=== PATIENT | female | born 1950 | race Caucasian/White ===

== ENCOUNTER 2017-11-25 11:21 | Inpatient (IN) | payer MEDICARE ==
--- NOTE | 2017-11-12 15:28 | HP ---
AMENDED REPORT NOW INCLUDES COSIGNER DESIGNATION - ESIGNED BEFORE ADJUSTMENT HISTORY AND PHYSICAL: DATE OF ADMISSION/SURGERY: 11/25/17 SURGEON: Sherly Godinez MD * (DICTATED BY AZEEM ALLEN) PROCEDURE: Right total hip arthroplasty. CHIEF COMPLAINT: Right hip pain. HISTORY OF PRESENT ILLNESS: Ms. Childress is a 67-year-old female with complaints of right hip pain secondary to advanced osteoarthritis. She has failed conservative management and elected to proceed with a right total hip arthroplasty, which is scheduled for 11/25/[address] Godinez. PAST MEDICAL HISTORY: 1. COPD. 2. High cholesterol. 3. Obesity. 4. Sleep apnea. PAST SURGICAL HISTORY: 1. Appendectomy. 2. Tonsillectomy. 3. Adenoidectomy. 4. Cholecystectomy. 5. Tubal ligation. 6. Left knee scope. 7. Left shoulder arthroscopy. 8. Cataract removal. CURRENT MEDICATIONS: 1. Vitamin D3. 2. Wellbutrin. 3. Vitamin B12. 4. Aspirin 81 mg daily. 5. Doxycycline 20 mg twice a day. 6. Simvastatin 20 mg daily. 7. Magnesium 500 mg twice daily. 8. Tramadol 50 mg every 6 hours as needed. 9. Uyvb-xnv-aohugxb Tylenol. ALLERGIES: 1. FLU VACCINE. 2. TETANUS. 3. SULFA. 4. MORPHINE. 5. CODEINE. 6. VALIUM. FAMILY HISTORY: Coronary artery disease. SOCIAL HISTORY: She is a 67-year-old female. She lives alone. She smokes a half pack a day. She denies use of drugs or alcohol. REVIEW OF SYSTEMS: A complete 14-point review of systems was reviewed with the patient and was positive for COPD and shortness of breath. She has had 1 seizure approximately 15 years ago. She denies history of DVT, PE, hepatitis C , or HIV. PHYSICAL EXAMINATION GENERAL: She is a well developed, well nourished, in no acute distress. VITAL SIGNS: She stands 5 feet 2 inches tall, weighs 248 pounds. Blood pressure 154/84, heart rate 90. HEENT: Normocephalic, atraumatic. NECK: Supple. No palpable lymph nodes. PULMONARY: She has some inspiratory wheezing in the right mid and lower lung base. CARDIAC: Regular rate and rhythm. Strong S1 and S2. ABDOMEN: Soft, nontender, and nondistended. MUSCULOSKELETAL: Right lower extremity, the skin is intact. There is no open wounds or abrasions. She walks with an antalgic gait favoring her right hip. She has decreased internal and external rotation of right hip. She has 2+ dorsalis pedis pulses. Intact sensation and her lower extremities muscle group strengths are intact at 5/5. NEUROLOGIC: She is alert and oriented x3. Cranial nerves II through XII are intact. ASSESSMENT AND PLAN: Ms. Childress is a 67-year-old female with complaints of right hip pain secondary to advanced osteoarthritis. She has failed conservative management and elected to proceed with a right total hip arthroplasty, which is scheduled for 11/25/[address] Godinez discussed the risks and benefits of the surgery on today's visit and all of her questions were answered. She will follow with Dr. Godinez 2 weeks after the surgery. AZEEM ALLEN [id number]/[facility] #: [id number] CHERRY
[~2017-11-25 11:21] MED LIST: Buffered Lidocaine 0.9% SYRIN* 5 ML/SYR SYRINGE INTRADERM ONE
--- OUTSIDE RECORDS SUMMARY | 2017-11-25 11:29 | XMS REPORT ---
:1950 External Reference #:[id number] Author Organization [place] [employer] Address [address] [address] Phone [phone] Care Team Providers Name Role Phone Mario Slade DO Primary Care Physician Unavailable Payers Type Date Identification Numbers Payment Provider Subscriber Health Maintenance Policy Number: Medicare Blue Ppo Abigail Wong (O) [id number] PayID: [id number] [address] [address] [place] [address] Problems Date Description Provider Status Onset: 12/16/2015 Obstructive sleep apnea syndrome Tracey Carpenter MD Active Onset: 12/16/2015 Obesity Tracey Carpenter MD Active Onset: 04/08/2016 Tobacco user Flaquita Desouza DNP, RN, Active BRIGHT CUTTER-BC Onset: 11/01/2017 Localized, primary osteoarthritis Sherly Godinez M.D. Active of the pelvic region and thigh Onset: 10/20/2017 Congenital anomaly of spinal cord Silvia Jon MD Active Onset: 10/20/2017 Lumbar spondylosis Silvia Jon MD Active Onset: 10/20/2017 Low back pain Silvia Jon MD Active Onset: 10/20/2017 Morbid obesity Silvia Jon MD Active Family History Date Family Member(s) Problem(s) Comments General Diabetes General Coronary Artery Disease (CAD) General Hypertension General Obesity General Stroke General Prostate Cancer Father due to Heart Disease () - age 89 Social History Type Date Description Comments Marital Status Lives With Alone Occupation Currently Working Occupation Resp Therapist ETOH Use Denies alcohol use Smoking Patient is a current smoker, smokes every day Recreational Drug Use Denies Drug Use Smoking Light tobacco smoker (10 or fewer cigarettes/day) Daily Caffeine Consumes on average 2 cups of regular coffee per day Exercise Type/Frequency Does not exercise Allergies, Adverse Reactions, Alerts Date Description Reaction Status Severity Comments 07/19/2006 Flu Vaccine active 07/19/2006 Tetanus active 07/19/2006 Sulfa active angioedema 07/19/2006 Morphine active 07/19/2006 Codeine active 07/19/2006 Valium active Medications Medication Date Status Form Strength Qnty SIG Indications Ordering Provider Vitamin D3 Active Capsules 5000Unit 1 cap by Unknown 016 mouth daily Bupropion HCL Active Tablets ER 300mg 1 by Unknown ER (XL) 016 24HR mouth every day Vitamin B 12 Active Tablets 1 by Unknown 016 mouth every day Aspirin Low Active 81mg 1 by Unknown Strength 016 mouth every day Doxycycline Active Tablets 20mg 1 by Unknown Hyclate 016 mouth twice a day Simvastatin Active Tablets 20mg 1 tab by Sopchak, 000 mouth Mario daily DO Hiren Magnesium Active Capsules 500mg 1 cap by Unknown 000 mouth bid Tramadol HCL Active Tablets 50mg 1 tablets Unknown 000 every 6 hours as needed Proair HFA Hx Aerosol 108(90Base 2 puffs Unknown 016 - ) mcg/Act by mouth every 4 018 hours as needed Triamterene Hx Capsules 25mg;37.5 90caps 1 PO qd Qutaybeh & HCTZ 006 - mg S. Maghaydah, 016 M.D. Aspirin Hx Tablets 325mg 1 po qd Qutaybeh 006 - S. Maghaydah, 006 M.D. Lisinopril Hx Tablets 10mg 30tabs 1 po qd Qutaybeh 006 - S. Maghaydah, 016 M.D. Simvastatin Hx Tablets 40mg Qutaybeh 006 - S. Maghaydah, 017 M.D. Vital Signs Date Vital Result Comment 11/01/2017 Height 60 inches 5'0" Weight 250.00 lb Heart Rate 101 /min BP Systolic Sitting 190 mmHg LA lg cuff BP Diastolic Sitting 94 mmHg LA lg cuff Pain Level 9 BMI (Body Mass Index) 48.8 kg/m2 10/20/2017 Height 60 inches 5'0" Weight 242.00 lb Heart Rate 86 /min BP Systolic Sitting 132 mmHg BP Diastolic Sitting 80 mmHg Pain Level 9 BMI (Body Mass Index) 47.3 kg/m2 07/07/2017 Height 60 inches 5'0" Weight 242.12 lb with shoes Heart Rate 90 /min BP Systolic Sitting 142 mmHg Rue large cuff BP Diastolic Sitting 88 mmHg Rue large cuff Respiratory Rate 16 /min O2 % BldC Oximetry 97 % On Ra BMI (Body Mass Index) 47.3 kg/m2 07/14/2016 Height 60 inches 5'0" Weight 243.00 lb Heart Rate 95 /min BP Systolic Sitting 132 mmHg BP Diastolic Sitting 78 mmHg Respiratory Rate 14 /min O2 % BldC Oximetry 94 % BMI (Body Mass Index) 47.5 kg/m2 04/08/2016 Height 61 inches 5'1" Weight 230.00 lb Heart Rate 84 /min BP Systolic 128 mmHg BP Diastolic 72 mmHg Respiratory Rate 14 /min O2 % BldC Oximetry 95 % BMI (Body Mass Index) 43.5 kg/m2 02/24/2016 Height 61 inches 5'1" Weight 230.00 lb Heart Rate 76 /min BP Systolic 124 mmHg BP Diastolic 88 mmHg Respiratory Rate 14 /min O2 % BldC Oximetry 92 % BMI (Body Mass Index) 43.5 kg/m2 12/16/2015 Height 61 inches 5'1" Weight 232.25 lb Heart Rate 92 /min BP Systolic 132 mmHg BP Diastolic 94 mmHg Respiratory Rate 14 /min O2 % BldC Oximetry 97 % BMI (Body Mass Index) 43.9 kg/m2 Neck Circumference in inches 17 07/19/2006 Height 61 inches 5'1" Weight 207.00 lb Heart Rate 87 /min BP Systolic Sitting 110 mmHg BP Diastolic Sitting 70 mmHg BMI (Body Mass Index) 39.1 kg/m2 Results Description No Information Procedures Date CPT Code Description Status 01/18/2016 34673 Sleep Study Unattended,HRT Rate,Oxygen Sat,Resp Completed Effort/Airflow 07/14/2006 67443 Selective Coronary Angioplasty Completed 07/14/2006 62866 S/I/R Inj Proc Vent And Or Atrial Completed 07/14/2006 76974 S/I/R Inj Proc Vent And Or Atrial Completed 07/14/2006 22490 Coronary Angiography Completed 07/14/2006 13343 Inj Proc LFT Vent/LFT Atrl Angio Completed 07/14/2006 61513 Inj Proc LFT Vent/LFT Atrl Angio Completed 07/14/2006 85600 Left Heart Catheterization Completed 07/13/2006 75132 Color Flow Doppler/Interp & Reprt Completed 07/13/2006 40585 Color Flow Doppler/Interp & Reprt Completed 07/13/2006 63364 Pulse Wave/Continuous-Interp.RPT Completed 07/13/2006 31218 Echocardiogram Completed 07/13/2006 11988 Echocardiogram Completed 07/13/2006 02761 EKG, Interpretation Only Completed Encounters Type Date Location Provider CPT E/M Dx Office Visit 07/07/2017 [facility] Flaquita Desouza, 42286 G47.33 1:30p [facility] RN, [facility] G89.29 G47.00 E66.01 Z68.42 F17.210 Office Visit 07/14/2016 9:30a [facility] Flaquita Desouza 80529 G47.33 [facility] RN, [facility] E66.01 Z68.42 Z87.891 Office Visit 04/08/2016 9:30a [facility] Flaquita Desouza 94578 G47.33 [facility] RN, [facility] G47.14 E66.01 F17.210 Z68.41 Office Visit 02/24/2016 11:00a [facility] Flaquita Desouza 12564 G47.33 [facility] RN, [facility] Office Visit 12/16/2015 10:15a [facility] [place] [address] G47.33 [facility] E66.09 Office Visit 07/19/2006 3:40p [facility] Dannisam Diaz, 62952 442.3 Evelyn 401.1 Plan of Care Future Appointment(s):11/12/2017 9:00 am - Sherly Godinez M.D. at [facility]11/23/2017 2:00 pm - Silvia Jon MD at [facility]07/11/2018 11:15 am - Flaquita Desouza DNP, RN, BRIGHT CUTTER- BC at [facility]11/01/2017 - Sherly Godinez M.D.M25.551 Pain in right hipFollow up:Follow up: 7-10 days before mlyxhdsP83.11 Unilateral primary osteoarthritis, right hip
--- OUTSIDE RECORDS SUMMARY | 2017-11-25 11:29 | XMS REPORT ---
:1950 External Reference #:[id number] Author Organization [employer] Address [address] [address] Phone [phone] Care Team Providers Name Role Phone Mario Slade DO Primary Care Physician Unavailable Payers Type Date Identification Numbers Payment Provider Subscriber Health Maintenance Policy Number: Medicare Blue Ppo Em Wong (O) [id number] PayID: [id number] [address] [address] [place] [address] Problems Date Description Provider Status Onset: 12/16/2015 Obstructive sleep apnea syndrome Tracey Carpenter MD Active Onset: 12/16/2015 Obesity Tracey Carpenter MD Active Onset: 04/08/2016 Tobacco user Flaquita Desouza DNP, RN, Active SHIPPING RECEIVING CLERK-BC Onset: 10/20/2017 Morbid obesity Silvia Jon MD Active Onset: 10/20/2017 Low back pain Silvia Jon MD Active Onset: 10/20/2017 Lumbar spondylosis Silvia Jon MD Active Onset: 10/20/2017 Congenital anomaly of spinal cord Silvia Jon MD Active Onset: 11/01/2017 Localized, primary osteoarthritis Sherly Godinez M.D. 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 No Do you have problems with snoring, day time fatigue? Yes - uses CPAP Allergies, Adverse Reactions, Alerts Date Description Reaction Status Severity Comments 07/19/2006 Flu Vaccine active 07/19/2006 Tetanus active 07/19/2006 Sulfa active angioedema 07/19/2006 Morphine active 07/19/2006 Codeine active 07/19/2006 Valium active Medications Medication Date Status Form Strength Qnty SIG Indications Ordering Provider Vitamin D3 12/14/ Active Capsules 5000Unit 1 cap by Unknown 2016 mouth daily Bupropion HCL 12/14/ Active Tablets ER 300mg 1 by mouth Unknown ER (XL) 2015 24HR every day Vitamin B 12 12/14/ Active Tablets 5000mcg 1 by mouth Unknown 2016 every day Aspirin Low 12/14/ Active 81mg 1 by mouth Unknown Strength 2016 every day Doxycycline 12/14/ Active Tablets 20mg 1 by mouth Unknown Hyclate 2016 twice a day Simvastatin / Active Tablets 20mg 1 tab by Sopchak, 0000 mouth Mario daily HirenDO Magnesium / Active Capsules 250mg 1 cap by Unknown 0000 mouth bid Tramadol HCL / Active Tablets 50mg 1 tablets Unknown 0000 every 6 hours as needed Tylenol Extra / Active Tablets 500mg 2 by mouth Unknown Strength 0000 as needed Motrin Ib / Active Tablets 200mg 2 twice a Unknown 0000 day as needed Proair HFA 12/14/ Hx Aerosol 108(90Base 2 puffs by Unknown 2016 - ) mcg/Act mouth 10/20/ every 4 2018 hours as needed Triamterene 07/19/ Hx Capsules 25mg;37.5 90caps 1 PO qd Qutaybeh & HCTZ 2006 - mg S. 12/14/ Joe, 2015 M.D. Aspirin 07/19/ Hx Tablets 325mg 1 po qd Qutaybeh 2005 - S. 07/19/ Maghaydah, 2005 M.D. Lisinopril 07/19/ Hx Tablets 10mg 30tabs 1 po qd Qutaybeh 2005 - S. 12/14/ Joe, 2016 Evelyn Simvastatin 07/19/ Hx Tablets 40mg Qutaybeh 2005 - S. 07/07/ Joe, 2016 Evelyn Tylenol / Hx as Unknown 0000 - directed 2017 Vital Signs Date Vital Result Comment 11/18/2017 Height 60 inches 5'0" Weight 247.00 lb without shoes Heart Rate 96 /min BP Systolic 154 mmHg Rue lg cuff BP Diastolic 70 mmHg Rue lg cuff BP Systolic Sitting 184 mmHg Lue lg cuff BP Diastolic Sitting 90 mmHg Lue lg cuff BP Systolic Standing 172 mmHg Lue lg cuff BP Diastolic Standing 98 mmHg Lue lg cuff Respiratory Rate 18 /min BMI (Body Mass Index) 48.2 kg/m2 11/12/2017 Height 60 inches 5'0" Weight 248.00 lb Heart Rate 90 /min BP Systolic Sitting 154 mmHg BP Diastolic Sitting 84 mmHg Respiratory Rate 16 /min Pain Level 5 BMI (Body Mass Index) 48.4 kg/m2 11/01/2017 Height 60 inches 5'0" Weight 250.00 [...] BMI (Body Mass Index) 39.1 kg/m2 Results Test Date Test Result H/L Range Note Laboratory test finding 11/12/2017 Pathologist Review (SEE NOTE) 1 CBC Auto Diff 11/12/2017 White Blood Count 11.4 10^3/uL High 3.5-10.8 Red Blood Count 4.40 10^6/uL 4.0-5.4 Hemoglobin 14.5 g/dL 12.0-16.0 Hematocrit 43 % 35-47 Mean Corpuscular Volume 97 fL 80-97 Mean Corpuscular Hemoglobin 33 pg High 27-31 Mean Corpuscular HGB Conc 34 g/dL 31-36 Red Cell Distribution Width 15 % 10.5-15 Platelet Count 245 10^3/uL 150-450 Mean Platelet Volume 8.3 um3 7.4-10.4 Abs Neutrophils 4.9 10^3/uL 1.5-7.7 Abs Lymphocytes 5.3 10^3/uL High 1.0-4.8 Abs Monocytes 1.1 10^3/uL High 0-0.8 Abs Eosinophils 0.1 10^3/uL 0-0.6 Abs Basophils 0.1 10^3/uL 0-0.2 Abs Nucleated RBC 0.1 10^3/uL Granulocyte % 42.8 % 38-83 Lymphocyte % 45.9 % 25-47 Monocyte % 9.8 % High 0-7 Eosinophil % 0.8 % 0-6 Basophil % 0.7 % 0-2 Nucleated Red Blood Cells % 0.8 Urine Culture And 11/12/2017 Urine Culture SEE RESULT BELOW 2 Sensitivities Laboratory test finding 11/12/2017 Partial Thrombo 30.9 seconds 26.0- 36.3 Time PTT Inr/Protime 11/12/2017 Inr 0.87 0.77-1.02 Comp Metabolic Panel 11/12/2017 Sodium 140 mmol/L 139-145 Potassium 3.9 mmol/L 3.5-5.0 Chloride 102 mmol/L 101-111 Co2 Carbon Dioxide 25 mmol/L 22-32 Anion Gap 13 mmol/L High 2-11 Glucose 94 mg/dL 70-100 Blood Urea Nitrogen 8 mg/dL 6-24 Creatinine 0.76 mg/dL 0.51-0.95 BUN/Creatinine Ratio 10.5 8-20 Calcium 9.7 mg/dL 8.6-10.3 Total Protein 6.9 g/dL 6.4-8.9 Albumin 4.3 g/dL 3.2-5.2 Globulin 2.6 g/dL 2-4 Albumin/Globulin Ratio 1.7 1-3 Total Bilirubin 0.50 mg/dL 0.2-1.0 Alkaline Phosphatase 49 U/L 34-104 Alt 24 U/L 7-52 Ast 20 U/L 13-39 Egfr Non- 76.4 >60 Egfr 98.2 >60 3 Type & Screen 11/12/2017 Patient Blood Type A Positive Antibody Screen NEGATIVE Urinalysis Profile 11/12/2017 Urine Color Yellow Urine Appearance Clear Urine Specific [place] 1.005 Low 1.010-1.030 Urine pH 6.0 5-9 Urine Urobilinogen Negative Negative Urine Ketones Negative Negative Urine Protein Negative Negative Urine Leukocytes Negative Negative Urine Blood Negative Negative Urine Nitrite Negative Negative Urine Bilirubin Negative Negative Urine Glucose Negative Negative 1 Mild absolute lymphocytosis and monocytosis favor reactive. Clinical correlation and additional studies is warranted. Reviewed by Dr. Mo 2 SEE RESULT BELOW Name: EM CHILDRESS : [address]: Sherly Godinez MD Acct: [id number] Unit: [id number] AGE: 67 Location: PAT Re11/12/17 SEX: F Status: REG REF SPEC: [id number] MARYJO: 11/12/17-[address]: Sherly Godinez MD REQ: [id number] RECD: 11/12/17 STATUS: COMP _ SOURCE: URINE SPDESC: ORDERED: Urine Culture QUERIES: Urine Source: Clean Catch Procedure Result Reported Site Urine Culture Final 11/13/17- 1425 ML No Growth (<1,000 CFU/mL) * ML - Main Lab . END OF REPORT DEPARTMENT OF PATHOLOGY, [address] [place] [address] Osbaldo Mo M.D. Director [facility] # [id number] 3 Because ethnic data is not always readily available, this report includes an eGFR for both -Americans and non- Americans. The National Kidney Disease Education Program (NKDEP) does not endorse the use of the MDRD equation for patients that are not between the ages of 18 and 70, are , have extremes of body size, muscle mass, or nutritional status, or are non- or non-. According to the National Kidney Foundation, irrespective of diagnosis, the stage of the disease is based on the level of kidney function: Stage Description GFR(mL/min/1.73 m(2)) 1 Kidney damage with normal or decreased GFR 90 2 Kidney damage with mild decrease in GFR 60-89 3 Moderate decrease in GFR 30-59 4 Severe decrease in GFR 15-29 5 Kidney failure <15 (or dialysis) Procedures Date CPT Code Description Status 11/18/2017 74724 EKG Tracing & Interpretation Completed 01/18/2016 12178 Sleep Study Unattended,HRT Rate,Oxygen Sat,Resp Completed Effort/Airflow 07/14/2006 52451 Selective Coronary Angioplasty Completed 07/14/2006 13505 S/I/R Inj Proc Vent And Or Atrial Completed 07/14/2006 90022 S/I/R Inj Proc Vent And Or Atrial Completed 07/14/2006 50751 Coronary Angiography Completed 07/14/2006 21117 Inj Proc LFT Vent/LFT Atrl Angio Completed 07/14/2006 03595 Inj Proc LFT Vent/LFT Atrl Angio Completed 07/14/2006 97840 Left Heart Catheterization Completed 07/13/2006 24185 Color Flow Doppler/Interp & Reprt Completed 07/13/2006 77178 Color Flow Doppler/Interp & Reprt Completed 07/13/2006 05726 Pulse Wave/Continuous-Interp.RPT Completed 07/13/2006 55745 Echocardiogram Completed 07/13/2006 42237 Echocardiogram Completed 07/13/2006 20204 EKG, Interpretation Only Completed Encounters Type Date Location Provider CPT E/M Dx Office Visit 11/01/2017 [facility] Godinez M.D. 89645 M16.11 9:30a Prema M25.551 Office Visit 10/20/2017 10:30a [facility] [address]0770 E66.01 [facility] MD Dontrell M54.5 M47.896 Q06.8 Office Visit 07/07/2017 1:30p [facility]ology [facility] Sleep Flaquita Desouza 36543 G47.33 [facility] MAC NASCIMENTO, [facility] G89.29 G47.00 E66.01 Z68.42 F17.210 Office Visit 07/14/2016 9:30a [facility] Sleep Flaquita Desouza 93271 G47.33 [facility] MAC NASCIMENTO, SHIPPING RECEIVING CLERK-BC E66.01 Z68.42 Z87.891 Office Visit 04/08/2016 9:30a [facility] Flaquita Desouza 15149 G47.33 [facility] MAC NASCIMENTO, [facility] G47.14 E66.01 F17.210 Z68.41 Office Visit 02/24/2016 11:00a [facility] Sleep Flaquita Desouza 26268 G47.33 [facility] MAC NASCIMENTO, [facility] Office Visit 12/16/2015 10:15a Pul[facility]ology [place] [address] G47.33 [facility] E66.09 Office Visit 07/19/2006 3:40p [facility] Prashant Diaz, 61049 442.3 Evelyn 401.1 Plan of Care Future Appointment(s):11/22/2017 1:30 pm - Ica Nuclear Schedule at [facility]11/23/2017 10:15 am - Prashant Diaz M.D. at [facility]12/06/2017 1:45 pm - Sherly Godinez M.D. at [facility]11/25/2017 2:00 pm - Noah Wagner PA-C at [facility]11/25/2017 2:00 pm - AZEEM Edwards at [facility].11/25/2017 2:00 pm - Sherly Godinez M.D. at [facility].11/23/2017 2:00 pm - Silvia Jon MD at [facility]07/11/2018 11:15 am - Flaquita Desouza DNP, RN, SHIPPING RECEIVING CLERK- BC at [facility]11/18/2017 - Roque Guerra DO [id number] Encounter for preprocedural cardiovascular examinationFollow up: Please schedule stress test next week [facility]phlos [facility] office, surgery is 11/25/2017. Follow up PRNZ72.0 Tobacco useR06.02 Shortness of breathNew Labs:B-Type Natriuretic Peptide BNPNew Orders:Stress Test, Pharmacologic Nuclear (Lexiscan)
--- OUTSIDE RECORDS SUMMARY | 2017-11-25 11:29 | XMS REPORT ---
:1950 External Reference #:[id number] Author Organization [employer] Address [address] [address] Phone [phone] Care Team Providers Name Role Phone Mario Slade DO Primary Care Physician Unavailable Payers Type Date Identification Numbers Payment Provider Subscriber Health Maintenance Policy Number: Medicare Blue Ppo Abigail Wong (O) [id number] PayID: [id number] [address] [address] [place] [address] Problems Date Description Provider Status Onset: 12/16/2015 Obstructive sleep apnea syndrome Tracey Carpenter MD Active Onset: 12/16/2015 Obesity Tracey Carpenter MD Active Onset: 04/08/2016 Tobacco user Flaquita Desouza DNP, RN, Active SECURITY MANAGEMENT SPECIALIST-BC Onset: 10/20/2017 Morbid obesity Silvia Jon MD [...] Lives With Alone Occupation Currently Working Occupation Library Aide ETOH Use Denies alcohol use Smoking Patient [...] M.D. Vital Signs Date Vital Result Comment 11/12/2017 Height 60 inches 5'0" Weight 248.00 [...] Procedures Date CPT Code Description Status 01/18/2016 38470 Sleep Study Unattended,HRT Rate,Oxygen Sat,Resp Completed Effort/Airflow 07/14/2006 15520 Selective Coronary Angioplasty Completed 07/14/2006 39162 S/I/R Inj Proc Vent And Or Atrial Completed 07/14/2006 03232 S/I/R Inj Proc Vent And Or Atrial Completed 07/14/2006 58587 Coronary Angiography Completed 07/14/2006 77913 Inj Proc LFT Vent/LFT Atrl Angio Completed 07/14/2006 29118 Inj Proc LFT Vent/LFT Atrl Angio Completed 07/14/2006 68883 Left Heart Catheterization Completed 07/13/2006 97385 Color Flow Doppler/Interp & Reprt Completed 07/13/2006 60235 Color Flow Doppler/Interp & Reprt Completed 07/13/2006 73977 Pulse Wave/Continuous-Interp.RPT Completed 07/13/2006 85383 Echocardiogram Completed 07/13/2006 56898 Echocardiogram Completed 07/13/2006 71314 EKG, Interpretation Only Completed Encounters Type Date Location Provider CPT E/M Dx Office Visit 11/01/2017 [facility] M.D. 95330 M16.11 9:30a C.MJaymie M25.551 Office Visit 10/20/2017 10:30a [facility] 30905 E66.01 Of Zafar Jon MD M54.5 M47.896 Q06.8 Office Visit 07/07/2017 1:30p [facility] Flaquita Desouza 67571 G47.33 Services Of Zafar NASCIMENTO RN, PAYTON G89.29 G47.00 E66.01 Z68.42 F17.210 Office Visit 07/14/2016 9:30a [facility] Flaquita Desouza 12582 G47.33 Services Of Zafar NASCIMENTO RN, PAYTON E66.01 Z68.42 Z87.891 Office Visit 04/08/2016 9:30a [facility] Flaquita Desouza 94055 G47.33 Services Of Zafar NASCIMENTO RN, PAYTON G47.14 E66.01 F17.210 Z68.41 Office Visit 02/24/2016 11:00a [facility] Flaquita Desouza 61683 G47.33 Services Of Pharmaceutical Officer DNP, RN, SECURITY MANAGEMENT SPECIALIST-BC Office Visit 12/16/2015 10:15a [facility] [place] [address] G47.33 Services Of [facility] E66.09 Office Visit 07/19/2006 3:40p [facility] Prashant Diaz, [address] 442.3 M.D. 401.1 Plan of Care Future Appointment(s):12/06/2017 1:45 pm - Sherly Godinez M.D. at [facility]..11/25/2017 2:00 pm - Noah Wagner PA-C at [facility].A.11/25/2017 2:00 pm - AZEEM Edwards at [facility] ..A.11/25/2017 2:00 pm - Sherly Godinez M.D. at [facility] .M.A.11/23/2017 2:00 pm - Silvia Jon MD at [facility]07/11/2018 11:15 am - Flaquita Desouza DNP, RN, SECURITY MANAGEMENT SPECIALIST- at [facility]11/12/2017 - Sherly Godinez M.D.M16.11 Unilateral primary osteoarthritis, right hipFollow up:Follow up: 2 weeks after rvhghslV79.551 Pain in right hip
[2017-11-25] MEDS ORDERED: Buffered Lidocaine 0.9% SYRIN* 5 ML/SYR SYRINGE ONE (11:31)
[2017-11-25] MEDS ORDERED: ceFAZolin 2 GM PREMIX (*) 2 GM/50 ML BAG IVPB ONE (11:32)
[2017-11-25] MEDS ORDERED: fentaNYL* 50 MCG/ML 2 ML VIAL (100 MCG VIAL) ONE ×3 (12:35→17:16)
[2017-11-25] MEDS ORDERED: Famotidine IV* 10 MG/ML 2 ML (20 mg) ONE (12:35)
[2017-11-25] MEDS ORDERED: Midazolam* 1 MG/ML 2 ML VIAL (2 MG) ONE ×2 (12:35→14:00)
[2017-11-25] MEDS ORDERED: Bupivacaine 0.5%* 50 ML VIAL ONE ×2 (13:56→14:47)
[2017-11-25] MEDS ORDERED: Cisatracurium* 2 MG/ML MDV 5 ML ONE ×2 (14:05→15:21)
[2017-11-25] MEDS ORDERED: Hetastarch in NS* 500 ML IV ONE (14:43)
[2017-11-25] MEDS ORDERED: Cyclobenzaprine TAB* 10 MG PO PRN (15:34)
[2017-11-25] MEDS ORDERED: Morphine INJ* 2 MG/ML 1 ML CARPUJECT IV PRN (15:34)
[2017-11-25] MEDS ORDERED: Magnesium Hydroxide LIQ* 30 ML UDC PO PRN (15:34)
[2017-11-25] MEDS ORDERED: oxyCODONE/Acetamin 5/325 MG* TAB PO PRN (15:34)
[2017-11-25] MEDS ORDERED: Acetaminophen TAB* 325 MG PO PRN (15:34)
[2017-11-25] MEDS ORDERED: diPHENhydraMINE PO* 25 MG PO PRN (15:34)
[2017-11-25] MEDS ORDERED: Morphine INJ* 4 MG/ML 1 ML CARPUJECT IV PRN (15:34)
[2017-11-25] MEDS ORDERED: Succinylcholine* 20 MG/ML 10 ML VIAL ONE (15:45)
[2017-11-25] MEDS ORDERED: Lidocaine 2% PF * 5 ML VIAL ONE (15:45)
[2017-11-25] MEDS ORDERED: Dexamethasone IV* 4 MG/ML 1 ML (4 MG) ONE (15:45)
[2017-11-25] MEDS ORDERED: Propofol* 10 MG/ML 20 ML BTL IV PUSH ONE (15:45)
[2017-11-25] MEDS ORDERED: Ketorolac INJ* 30 MG/ML 1 ML VIAL ONE (15:45)
[2017-11-25] MEDS ORDERED: PROCHLORPERAZINE INJ 5 MG/ML 2 ML VIAL IV PRN (16:04)
[2017-11-25] MEDS ORDERED: Naloxone* 0.4 MG/ML 1 ML VIAL IV PRN (16:04)
[2017-11-25] MEDS ORDERED: Levalbuterol 0.63MG/3ML NEB* UNIT OF USE INH PRN (16:04)
[2017-11-25] MEDS ORDERED: DiMENhydriNATE IV* 50 MG/ML VIAL IV PUSH PRN (16:04)
[2017-11-25] MEDS ORDERED: Ondansetron INJ* 2 MG/ML VIAL IV PRN (16:04)
[2017-11-25] MEDS ORDERED: Ondansetron INJ* 2 MG/ML VIAL ONE (16:07)
--- NOTE | 2017-11-25 16:28 | RAD ---
Indication: RIGHT total hip replacement Comparison: November 01, 2017 Technique: LEFT lateral decubitus crosstable AP pelvis 1547 hours Report: Prosthetic RIGHT acetabular component in place. RIGHT femur reamer test fit component in place. No fracture evident in the AP projection. IMPRESSION: Intraoperative control film.
[2017-11-25] MEDS: fentaNYL* 50 MCG/ML 2 ML VIAL (100 MCG VIAL) IV PRN ×4 (17:18→17:39)
[2017-11-25] MEDS ORDERED: oxyCODONE/Acetamin 5/325 MG* TAB ONE (17:34)
[2017-11-25] MEDS ORDERED: HYDROmorphone INJ* 2 MG/ML CARPUJECT SYRINGE IV SLOW PU PRN (17:36)
[2017-11-25] MEDS: oxyCODONE/Acetamin 5/325 MG* TAB PO PRN (17:37)
[2017-11-25] MEDS ORDERED: HYDROmorphone INJ* 2 MG/ML CARPUJECT SYRINGE ONE (17:42)
--- NOTE | 2017-11-25 17:57 | RAD ---
Indication: Post RIGHT hip total arthroplasty. Comparison: Intraoperative control film of the same date. Technique: AP pelvis and proximal femurs, AP and crosstable lateral views RIGHT hip. Report: RIGHT total hip prosthesis in place with normal alignment. No periprosthetic fracture evident. Overlying soft tissue edema and subcutaneous emphysema. IMPRESSION: Unremarkable immediate postop appearance following RIGHT total hip replacement.
--- NOTE | 2017-11-25 20:46 | CONS ---
CONSULTATION REPORT: DATE OF CONSULT: 11/25/17 SOURCE OF INFORMATION: History obtained from interview of patient, review of past medical records. RELIABILITY: Fair. SERVICE REQUESTING CONSULTATION: Orthopedics. REASON FOR CONSULT: Medical co-management. HISTORY OF PRESENT ILLNESS: This is a 67-year-old female postop day 0 right total hip arthroplasty performed after failed conservative management for advanced osteoarthritis and pain. Patient was seen in the PACU status post the procedure where she was receiving pain medication for continued pain in the right hip. The patient relays to me that she does have COPD, currently well managed, as well as obstructive sleep apnea for which she uses CPAP. She believes her pressures start at 5. Her medical history includes hypertension, although her current medication list does not list any antihypertensives. The patient notes that she does take an antihypertensive that begins with a V, but is unable to relay information further than this. Additionally, her medication list includes doxycycline, which the patient indicates she is taking for "pockets in her gums" and she has 3 additional months to finish. PAST MEDICAL HISTORY: Hyperlipidemia, hypertension, obstructive sleep apnea on CPAP, obesity, COPD. PAST SURGICAL HISTORY: Appendectomy, tonsillectomy, adenoidectomy, cholecystectomy, tubal ligation, left knee arthroscopy, left shoulder arthroscopy, and cataract removal. MEDICATIONS: Reviewed from chart include: 1. Vitamin D3. 2. Wellbutrin. 3. Vitamin B12. 4. Aspirin 81 mg. 5. Doxycycline 20 mg twice daily, which I do not believe to be the correct dose. 6. Simvastatin 20 mg daily. 7. Magnesium 500 mg twice daily. 8. Tramadol 50 mg every 6 hours as needed. 9. Tylenol p.r.n. ALLERGIES: To FLU VACCINE, TETANUS, SULFA, MORPHINE, CODEINE, and VALIUM. FAMILY HISTORY: Mother with CAD, brother with CAD. SOCIAL HISTORY: One half pack per day for approximately 50 years, current one half pack per day smoker. Minimal alcohol. REVIEW OF SYSTEMS: Currently pain in the right hip, otherwise no chest pain, shortness of breath, nausea, vomiting, lightheadedness. PHYSICAL EXAM: Vitals when seen by this author: 140/98, heart rate 67, respiratory rate is 20, 100% on face mask. Lying flat in bed, interactive, slightly lethargic. Receiving fentanyl at this moment. Oropharynx is clear. She has moist mucous membranes. Sclerae are anicteric. She has regular rate and rhythm. No murmurs, rubs, or gallops. Her lungs are clear to auscultation anteriorly. Her abdomen is soft, nontender, nondistended. Her extremities are warm and well perfused. She is neurovascularly intact peripherally in the lower extremities. She is alert and oriented x3. DIAGNOSTIC STUDIES/LAB DATA: No labs to review. ASSESSMENT AND PLAN: 1. This is a 67-year-old female postop day 0 right total hip replacement. Medicine team consulting for co-medical management. 2. Right total hip replacement, management per primary team. To include PT/OT. 3. Chronic obstructive pulmonary disease, stable, on no controller medications. 4. Obstructive sleep apnea. I have ordered CPAP with the hospital's equipment to be used with the pressure starting at 5. 5. Hypertension. Currently receiving no medications. Further medication reconciliation potentially with the patient's pharmacy would be valuable, especially should she develop hypertension while in the hospital. 6. Tobacco abuse. I have initiated a nicotine patch to begin tomorrow. 7. Chronic dental infection. Continue doxycycline at 100 mg twice daily. This dose should be confirmed with the patient's primary care provider. 8. DVT prophylaxis per primary team currently includes Lovenox and Coumadin. Thank you for this consultation. We will continue to follow. [id number]/[facility] #: [id number] CHERRY
[2017-11-25] MEDS: DOXYcycline CAP(*) 100 MG PO SCH (21:00)
[2017-11-25] MEDS ORDERED: Warfarin TAB(*) 6 MG PO ONE (21:00)
[2017-11-25] MEDS: Docusate CAP* 100 MG PO SCH (21:00)
[2017-11-25] MEDS: oxyCODONE TAB* 5 MG TAB PO PRN (21:06)
[2017-11-25] MEDS: Magnesium Hydroxide LIQ* 30 ML UDC PO SCH (21:19)
[2017-11-25] MEDS: ceFAZolin 1 GM in Dextrose (*) 1 GM/50 ML BAG IVPB SCH (22:56)
[2017-11-25] MEDS: Nicotine Patch Removal NOTE FOLLOW UP SCH (23:06)
[2017-11-26] MEDS: oxyCODONE TAB* 5 MG TAB PO PRN ×5 (02:38→20:58)
[2017-11-26] MEDS: oxyCODONE/Acetamin 5/325 MG* TAB PO PRN (06:04)
[2017-11-26 06:14] LABS: Hematocrit 34 % (35-47); Hemoglobin 11.3 g/dl (12.0-16.0); Mean Platelet Volume 7.7 um3 (7.4-10.4); Platelet Count 203 10^3/ul (150-450)
[2017-11-26 06:20] LABS: INR 0.94 (0.77-1.02)
[2017-11-26] MEDS: ceFAZolin 1 GM in Dextrose (*) 1 GM/50 ML BAG IVPB SCH ×2 (06:48→15:24)
--- NOTE | 2017-11-26 08:45 | PN ---
Progress Note - Progress Note Date of Service: 11/26/17 SOAP: Subjective: 67 y/o female s/p R PRESTON by Dr. Godinez POD #1. Patient reports feeling well, pain controlled, no NV. VSS, afebrile overnight. Objective: General- Well appearing, NAD, AO Sitting in chair comfortably. MSK- RLE- DF/PF = b/l, PT 2+, negative homans sign, surgical dressing intact, no drainage noted, no induration/ erythema. Vital Signs Temp 98.6 F 11/26/17 11:25 Pulse 85 11/26/17 11:25 Resp 18 11/26/17 12:44 BP 127/59 11/26/17 11:25 Pulse Ox 92 11/26/17 11:25 Intake & Output 11/25/17 11/26/17 11/26/17 18:59 06:59 18:59 Intake Total 2550 50 1434 Output Total 756 336 5828 Balance 1650 -750 -266 Weight 107.501 kg Intake: IV Fluids 2050 1314 ABX - CEFAZOLIN 55 LR 1259 NS 50ML, Cefazolin 2G 50 lr 2000 IVPB 50 ABX - CEFAZOLIN 50 Oral 0 120 Plasma Expanders Amount 500 Output: Urine 1700 Rendon 600 800 Estimated Blood Loss 300 Assessment: Stable Plan: - DVT prophylaxis- INR 0.94. lovenox, coumadin 6mg tonight. - Continue PT/ OT - Follow up with Dr. Godinez within 10-14 days post-op - H&H - stable - post-op IV ABX - running. - likely d/c to friends home tomorrow, d/c city planner aware. Acetaminophen (Tylenol Tab*) 650 mg PO Q4H PRN PRN Reason: FEVER/PAIN Bisacodyl (Dulcolax Supp*) 10 mg WV DAILY PRN PRN Reason: constipation Cyclobenzaprine HCl (Flexeril Tab*) 10 mg PO TID PRN PRN Reason: SPASMS Dimenhydrinate (Dramamine Iv*) 25 mg IV PUSH ONCE PRN PRN Reason: NAUSEA/VOMITING Diphenhydramine HCl (Benadryl Po*) 25 mg PO Q6H PRN PRN Reason: itching Docusate Sodium (Colace Cap*) 100 mg PO BID TYRON Last Admin: 11/26/17 09:45 Dose: 100 mg Doxycycline Hyclate (Vibramycin Cap(*)) 100 mg PO BID [facility] Last Admin: 11/26/17 09:45 Dose: 100 mg Enoxaparin Sodium (Lovenox(*)) 40 mg SUBCUT Q24H [facility] Last Admin: 11/26/17 09:46 Dose: 40 mg Hydromorphone HCl (Dilaudid Inj*) 2 mg IV SLOW PU Q2H PRN PRN Reason: PAIN - SEVERE Last Admin: 11/25/17 17:46 Dose: 1 mg Cefazolin Sodium/Dextrose (Kefzol 1 Gm In Dextrose Duplex (*)) 1 gm in 50 mls @ 200 mls/hr IVPB Q8H [facility] Stop: 11/26/17 15:14 Last Admin: 11/26/17 06:48 Dose: 200 mls/hr Lactated Ringer's (Lactated Ringers 1000 Ml Bag*) 1,000 mls @ 100 mls/hr IV PER RATE [facility] Last Admin: 11/26/17 07:54 Dose: 100 mls/hr Magnesium Hydroxide (Milk Of Magnesia Liq*) 30 ml PO BID [facility] Last Admin: 11/26/17 09:46 Dose: 30 ml Magnesium Hydroxide (Milk Of Magnesia Liq*) 30 ml PO Q6H PRN PRN Reason: constipation Naloxone HCl (Narcan*) 0.08 mg IV Q2M PRN PRN Reason: severe induced resp depression Stop: 11/26/17 16:03 Nicotine (Nicotine Patch 14 Mg/24 Hr*) 1 patch TRANSDERM DAILY [facility] Last Admin: 11/26/17 09:48 Dose: Not Given Oxycodone HCl (Roxycodone Tab*) 10 mg PO Q4H PRN PRN Reason: PAIN - SEVERE Last Admin: 11/26/17 12:44 Dose: 10 mg Oxycodone/Acetaminophen (Percocet 5/325 Tab*) 2 tab PO Q4H PRN PRN Reason: PAIN - MODERATE Last Admin: 11/26/17 06:04 Dose: 2 tab Oxycodone/Acetaminophen (Percocet 5/325 Tab*) 1 tab PO Q4H PRN PRN Reason: PAIN - MILD Last Admin: 11/25/17 23:00 Dose: 1 tab Pharmacy Profile Note (Nicotine Patch Removal Note*) 1 note FOLLOW UP 2099 [facility] Last Admin: 11/25/17 23:06 Dose: Not Given Pharmacy Profile Note (Coumadin Daily Reminder*) 1 note FOLLOW UP 1700 [facility] Warfarin Sodium (Coumadin Tab(*)) 6 mg PO ONCE@1700 ONE PRN Reason: Protocol Stop: 11/26/17 17:01
--- NOTE | 2017-11-26 09:43 | OP ---
OPERATIVE REPORT: DATE OF OPERATION: 11/25/17 DATE OF : 54 ATTENDING SURGEON: Sherly Godinez MD. CHIN STRAP SEWER: AZEEM Santo. Mr. Wagner did help throughout the procedure with preparation of the leg, wound retraction, manipulat ion of the hip, and wound closure. ANESTHESIOLOGIST: Dr. Roa. ANESTHESIA TYPE: General. PRE-OP DIAGNOSES: Severe endstage degenerative osteoarthritis of the right hip joint, morbid obesity . POST-OP DIAGNOSES: Severe endstage degenerative osteoarthritis of the right hip joint, morbid obesit y. PROCEDURE PERFORMED: Right total hip arthroplasty with modifier for prolonged operative time seconda ry to morbid obesity. COMPLICATIONS: None. ESTIMATED BLOOD LOSS: 400 cc. SPECIMEN: Femoral head and acetabulum sent to Pathology. HARDWARE USED: This is uncemented Melrude total hip arthroplasty component. For the cup, a Trident acetabular shell 48E, a single 16-mm screw was used. For the insert, a Trident X3 0-degree polyethyl margy insert 36B. For the stem, an Accolade TMZF size 2.5 with a 127-degree neck. For the head, a Bio lox delta ceramic V40 36 +0. BRIEF HISTORY/INDICATIONS: Ms. Childress is a 67-year-old female with years of increasingly severe right hip pain. She failed conservative treatment with antiinflammatories, pain medication, intraarticular injection, and physical therapy. Her radiographs showed severe endstage arthritis. Due to continue d pain and decreased quality of life, she elected to undergo right total hip arthroplasty. Informed c onsent was obtained from the patient. She understood the risks of the surgery included, but were not limited to bleeding, infection, damage to nearby structures, continued pain, need for further surger y, intraoperative fracture, nerve palsy, hardware failure or loosening, dislocation, leg length discr epancy, stroke, heart attack, blood clot, and . She wished to proceed. INTRAOPERATIVE FINDINGS: Intraoperatively, the patient was noted to have severe endstage arthritis w ith complete loss of cartilage in the femoral head and acetabulum. She had significant osteophyte fo rmation around the entire acetabulum. She had a dysplastic shallow acetabular cup. Throughout the pr ocedure, there was added operative time due to the patient's morbid obesity. There was at least 10 c m of subcutaneous fat. This made every stage of the procedure more difficult including exposure and placement of implants. This added at least 1 hour to the operative case. DESCRIPTION OF PROCEDURE: Ms. Childress was identified in the preanesthesia unit. Her right lower extrem ity was marked as the correct operative side. Informed consent was signed and placed in the chart. The patient was taken to the operating room and placed under general anesthesia. A Rendon catheter wa s placed. The patient was turned in to the left lateral decubitus position on the pegboard and all b sourav prominences were well padded. The right lower extremity was prepped and draped in the usual ster ile fashion. Preop time-out was made to correctly identify the patient's side and site. Appropriate perioperative antibiotics were given within 1 hour of incision. A standard posterior hip incision was made with a 10-blade and carried down to the skin. Electrocaut chastity was used to dissect through the subcutaneous fat to the lateral fascial layer. This was at least 10 cm of subcutaneous fat. Lateral fascial layer was incised in line with the skin layer. Deep Erin rnley was placed for visualization. The piriformis and conjoint tendons were identified and elevated off the posterolateral femur using electrocautery. These were tagged with #5 Ethibond. Electrocaut chastity was then used to make a standard posterolateral capsular flap and this was also tagged with #5 Et hibond. The hip was carefully dislocated. Lesser troch to center of the femoral head measured 50 mm . Oscillating saw was used to make the appropriate femoral neck cut. The femoral head was removed. The femur was carefully retracted anteriorly. After appropriate placement of retractors, the acetabu lum was visualized. Presentation of the acetabulum as well as placement of the cup was made quite di fficult by the patient's body habitus. Long-handled knife was used to sharply remove the remaining la marie from the acetabular rim. The acetabulum was sequentially reamed up to a size 47. A bleeding bryant bchondral bone bed was obtained. The acetabulum was shallow and dysplastic. Final implant chosen wa s a 48D Trident hemispherical acetabular shell. This was impacted into the acetabulum without difficu lty. Good stability was obtained. Appropriate anteversion and abduction angle were obtained. A sin gle 16- mm screw was placed in the superoposterior quadrant for extra stability. Liner chosen was Tr ident X3 0-degree liner 36D. This was impacted into the acetabulum without difficulty. Stability of the liner was checked and rechecked and noted to be stable. Next, attention was turned to preparation of the proximal femur. Presentation of the proximal femur was made extremely difficult by the patient's body habitus. A canal finder was used to enter the pro ximal femur. The femur was sequentially broached up to a size 2.5. A 2.5 broach had excellent fit a nd appropriate anteversion. A 127-degree neck trial and a 36 +0 head trial was chosen. Lesser troch to center of the femoral head measured 52 mm. The hip was reduced and taken through a range of mirtha on. The hip was stable in all positions. Soft tissue tension and leg length seemed to be appropriat e. The hip was carefully dislocated. All trials were removed. Final stem chosen was an Accolade TMZF s ize 2.5 with a 127-degree neck angle. This was impacted into the femoral canal without difficulty. The stem was stable with appropriate anteversion. A Biolox delta ceramic V40 femoral head 36+0 was c hosen and impacted back into the femoral neck. The hip was reduced and taken through a range of mirtha on. The hip was stable in all positions. Soft tissue tension and leg lengths were deemed to be appr opriate. The hip was copiously irrigated with sterile saline. Previously tagged tendons and capsule were reap proximated to the posterolateral femur through 2 trochanteric drill holes. The lateral fascial layer was carefully closed using interrupted #1 Vicryls. The rest of the incision was closed in a layered fashion using 0 and 2-0 Vicryls. The closure of the patient's incision secondary to body habitus wa s complex and added at least 30 minutes to the operative time. Skin was closed using running 3-0 Mon ocryl and Dermabond. Sterile Adaptic, 4x4s, and paper tape were used to cover the incision. The rosanna ent's anesthesia was reversed without difficulty. She was taken to the PACU in stable condition. In tended weightbearing will be weightbearing as tolerated with posterior hip precautions. Intended DVT prophylaxis will be Coumadin with a Lovenox bridge. [id number]/[facility] #: [id number]
[2017-11-26] MEDS: DOXYcycline CAP(*) 100 MG PO SCH ×2 (09:45→20:59)
[2017-11-26] MEDS: Docusate CAP* 100 MG PO SCH ×2 (09:45→20:59)
[2017-11-26] MEDS: Enoxaparin(*) 40 MG/0.4 ML SYR SUBCUT SCH (09:46)
[2017-11-26] MEDS: Magnesium Hydroxide LIQ* 30 ML UDC PO SCH ×2 (09:46→21:00)
[2017-11-26] MEDS: Nicotine PATCH 14 MG/24 HR* PATCH TRANSDERM SCH (09:48)
--- NOTE | 2017-11-26 11:52 | PN ---
Subjective Date of Service: 11/26/17 Interval History: Patient was seen and examined at bedside. Reports doing well, denies any complaints. Denies chest pain, palpitations or SOB. Has had her PT earlier this morning. Rendon catheter removed, voided with no difficulties. Family History: Unchanged from Admission Social History: Unchanged from Admission Past Medical History: Unchanged from Admission Objective Active Medications: Acetaminophen (Tylenol Tab*) 650 mg PO Q4H PRN PRN Reason: FEVER/PAIN Bisacodyl (Dulcolax Supp*) 10 mg VT DAILY PRN PRN Reason: constipation Cyclobenzaprine HCl (Flexeril Tab*) 10 mg PO TID PRN PRN Reason: SPASMS Dimenhydrinate (Dramamine Iv*) 25 mg IV PUSH ONCE PRN PRN Reason: NAUSEA/VOMITING Diphenhydramine HCl (Benadryl Po*) 25 mg PO Q6H PRN PRN Reason: itching Docusate Sodium (Colace Cap*) 100 mg PO BID [facility] Last Admin: 11/26/17 09:45 Dose: 100 mg Doxycycline Hyclate (Vibramycin Cap(*)) 100 mg PO BID [facility] Last Admin: 11/26/17 09:45 Dose: 100 mg Enoxaparin Sodium (Lovenox(*)) 40 mg SUBCUT Q24H [facility] Last Admin: 11/26/17 09:46 Dose: 40 mg Hydromorphone HCl (Dilaudid Inj*) 2 mg IV SLOW PU Q2H PRN PRN Reason: PAIN - SEVERE Last Admin: 11/25/17 17:46 Dose: 1 mg Cefazolin Sodium/Dextrose (Kefzol 1 Gm In Dextrose Duplex (*)) 1 gm in 50 mls @ 200 mls/hr IVPB Q8H [facility] Stop: 11/26/17 15:14 Last Admin: 11/26/17 06:48 Dose: 200 mls/hr Lactated Ringer's (Lactated Ringers 1000 Ml Bag*) 1,000 mls @ 100 mls/hr IV PER RATE [facility] Last Admin: 11/26/17 07:54 Dose: 100 mls/hr Magnesium Hydroxide (Milk Of Magnesia Liq*) 30 ml PO BID [facility] Last Admin: 11/26/17 09:46 Dose: 30 ml Magnesium Hydroxide (Milk Of Magnesia Liq*) 30 ml PO Q6H PRN PRN Reason: constipation Naloxone HCl (Narcan*) 0.08 mg IV Q2M PRN PRN Reason: severe induced resp depression Stop: 11/26/17 16:03 Nicotine (Nicotine Patch 14 Mg/24 Hr*) 1 patch TRANSDERM DAILY [facility] Last Admin: 11/26/17 09:48 Dose: Not Given Oxycodone HCl (Roxycodone Tab*) 10 mg PO Q4H PRN PRN Reason: PAIN - SEVERE Last Admin: 11/26/17 08:51 Dose: 10 mg Oxycodone/Acetaminophen (Percocet 5/325 Tab*) 2 tab PO Q4H PRN PRN Reason: PAIN - MODERATE Last Admin: 11/26/17 06:04 Dose: 2 tab Oxycodone/Acetaminophen (Percocet 5/325 Tab*) 1 tab PO Q4H PRN PRN Reason: PAIN - MILD Last Admin: 11/25/17 23:00 Dose: 1 tab Pharmacy Profile Note (Nicotine Patch Removal Note*) 1 note FOLLOW UP 2100 [facility] Last Admin: 11/25/17 23:06 Dose: Not Given Pharmacy Profile Note (Coumadin Daily Reminder*) 1 note FOLLOW UP 1700 [facility] Warfarin Sodium (Coumadin Tab(*)) 6 mg PO ONCE@1700 ONE PRN Reason: Protocol Stop: 11/26/17 17:01 Vital Signs - 8 hr 11/26/17 11/26/17 11/26/17 03:48 04:37 06:04 Temperature 96.1 F Pulse Rate 83 Respiratory 16 16 16 Rate Blood Pressure 124/50 (mmHg) O2 Sat by Pulse 97 Oximetry 11/26/17 11/26/17 11/26/17 07:40 08:00 08:04 Temperature 97.8 F Pulse Rate 77 Respiratory 16 18 18 Rate Blood Pressure 118/52 (mmHg) O2 Sat by Pulse 93 93 Oximetry 11/26/17 11/26/17 08:51 11:26 Temperature Pulse Rate Respiratory 16 18 Rate Blood Pressure (mmHg) O2 Sat by Pulse Oximetry Oxygen Devices in Use Now: None Appearance: Alert and oriented, very pleasant, sitting in her chair, comfortable and in NAD. Eyes: No Scleral Icterus, PERRLA Ears/Nose/Mouth/Throat: Clear Oropharnyx, Mucous Membranes Moist Neck: NL Appearance and Movements; NL JVP, Trachea Midline Respiratory: Symmetrical Chest Expansion and Respiratory Effort, Clear to Auscultation Cardiovascular: NL Sounds; No Murmurs; No JVD, RRR Abdominal: NL Sounds; No Tenderness; No Distention, No Hepatosplenomegaly Lymphatic: No Cervical Adenopathy Extremities: No Edema, No Clubbing, Cyanosis Neurological: Alert and Oriented x 3, NL Sensation Lines/Tubes/Other Access: Clean, Dry and Intact Rendon - Already removed, Clean, Dry and Intact Peripheral IV - Safesited Nutrition: Taking PO's Result Diagrams: 11/26/17 05:45 11/26/17 05:45 EKG Data: EKG INTERPRETATION ECG Report Patient Name EM ROSS Birthdate 1950 Sex F Order Number [id number] Date of ECG 11/12/2017 11:20:39 Interpretation Sinus rhythm.normal P axis, V-rate 50- 99 Low voltage, precordial leads.precordial leads <1.0mV - OTHERWISE NORMAL ECG - Rate is faster, voltage lower and R wave progression change across precordial leads, poss. due to lead placement c/w 07/13/2006 Electronically signed on 11/13/2017 at 16:12 by Latanya Torres MD Assess/Plan/Problems-Billing Assessment: A 67 y/o female with Hx HTN, COPD and tobacco abuse, who is POD#1 s/p right total hip replacement, clinically stable. - Patient Problems (1) Status post hip replacement Current Visit: Yes Status: Acute Comment: - PT/OT per ortho - Pain control - Anticipate discharge in 1-2 days once INR within desired range (2) HTN (hypertension) Current Visit: Yes Comment: - Controlled with no meds at home - Stable during this hospitalization - Continue to monitor vitals (3) COPD (chronic obstructive pulmonary disease) Current Visit: Yes Status: Acute Comment: - Stable - On no cuurent controllers at home - Will continue to monitor (4) Chronic dental infection Current Visit: Yes Comment: - Continue prophylaxis with Doxycyclin (5) Obstructive sleep apnea Current Visit: Yes Comment: - C-PAP ordered (6) DVT prophylaxis Current Visit: Yes Status: Acute Code(s): [id number] - SNOMED Code(s): 219362711 Comment: - On Lovenox and Coumadin until INR within desired range (7) Full code status Current Visit: Yes Status: Acute Code(s): Z78.9 - OTHER SPECIFIED HEALTH STATUS SNOMED Code(s): 517996695 Comment: She is full code Status and Disposition: Inpatient. Anticipate discharge per ortho in 1-2 days.
[2017-11-26] MEDS ORDERED: Warfarin TAB(*) 6 MG PO ONE (17:00)
[2017-11-26] MEDS: Nicotine Patch Removal NOTE FOLLOW UP SCH (21:00)
[2017-11-27] MEDS: oxyCODONE/Acetamin 5/325 MG* TAB PO PRN (03:45)
[2017-11-27 05:57] LABS: Hematocrit 32 % (35-47); Hemoglobin 10.9 g/dl (12.0-16.0); Mean Platelet Volume 8.1 um3 (7.4-10.4); Platelet Count 200 10^3/ul (150-450)
[2017-11-27 06:13] LABS: INR 1.59 (0.77-1.02)
[2017-11-27 07:42] VITALS: BP 125/50
[2017-11-27] MEDS: oxyCODONE TAB* 5 MG TAB PO PRN ×2 (07:46→11:33)
[2017-11-27] MEDS: Enoxaparin(*) 40 MG/0.4 ML SYR SUBCUT SCH (08:53)
[2017-11-27] MEDS: DOXYcycline CAP(*) 100 MG PO SCH (08:53)
[2017-11-27] MEDS: Nicotine PATCH 14 MG/24 HR* PATCH TRANSDERM SCH (08:55)
[2017-11-27] MEDS: Docusate CAP* 100 MG PO SCH (08:55)
[2017-11-27] MEDS: Magnesium Hydroxide LIQ* 30 ML UDC PO SCH (08:55)
--- NOTE | 2017-11-27 09:20 | PN ---
Progress Note - Progress Note Date of Service: 11/27/17 SOAP: Subjective: [Pt doing well. Pain managed with po meds. Has done stairs with PT. Feels ready to go home after PT session this morning. Denies CP, SOB, dizziness, nausea.] Objective: [A and O x 3, NAD. Standing with walker. R hip dressing changed. Surgical wound benign. No erythema or drainage. Calf soft, NT. Distal gross motor and sensation intact. Vital Signs: Temp Pulse Resp BP Pulse Ox 97.7 F 91 18 125/50 95 11/27/17 07:28 11/27/17 07:28 11/27/17 07:46 11/27/17 07:28 11/27/17 07:28 Laboratory Results - last 24 hr 11/27/17 11/27/17 05:39 05:39 Hgb 10.9 L Hct 32 L Plt Count 200 MPV 8.1 INR (Anticoag Therapy) 1.59 H ] Assessment: [67 yo female s/p R PRESTON POD #2 doing well] Plan: [PT Coumadin 6 mg , 4 mg Wednesday D/C home today F/U with Dr. Godinez in 2 weeks ]
[2017-11-27] MEDS ORDERED: Bisacodyl SUPP* 10 MG SUPP PR PRN (15:34)
--- NOTE | 2017-11-27 22:40 | DS ---
AMENDED REPORT NOW INCLUDES COSIGNER DESIGNATION - ESIGNED BEFORE ADJUSTMENT DISCHARGE SUMMARY: DATE OF ADMISSION: 11/25/17 DATE OF DISCHARGE: 11/27/17 PROVIDER: Sherly Godinez MD ADMITTING PHYSICIAN: Dr. Godinez. * (DICTATED BY AZEEM SCHAFER) ADMITTING DIAGNOSES: 1. Right hip osteoarthritis. 2. Chronic obstructive pulmonary disease. 3. High cholesterol. 4. Obesity. 5. Sleep apnea. DISCHARGE DIAGNOSES: 1. Status post right total hip arthroplasty. 2. Chronic obstructive pulmonary disease. 3. High cholesterol. 4. Obesity. 5. Sleep apnea. PROCEDURE: Right total hip arthroplasty. CONSULTANTS: 1. Physical Therapy. 2. Occupational Therapy. 3. Medicine. BRIEF HISTORY: Ms. Childress is a 67-year-old female with severe degenerative osteoarthritis of her right hip. She failed conservative treatment measures and elected to undergo a right total hip arthroplasty on 11/25/[address] Godinez. HOSPITAL COURSE: Ms. Childress was admitted to [facility] on 11/25/17. She underwent an uncomplicated right total hip arthroplasty. Postoperatively, she recovered in the short stay surgical unit. Her Rendon catheter was removed on postoperative day 1 and she was able to urinate on her own. Postoperative day 2, she advanced to regular diet without difficulty. Her pain was well controlled with Percocet. She was restarted on home medications. Vital signs and labs remained stable. She was able to bear weight as tolerated on the right lower extremity. She followed posterior hip precaution. She advanced appropriately with physical therapy and occupational therapy. Her DVT prophylaxis was bridged with Lovenox and Coumadin. By postoperative day #2, she was orthopedically and medically stable for discharge home with services. PHYSICAL EXAMINATION: General: On examination, the patient is noted to be calm and cooperative, in no acute distress. She is alert and oriented x3. Vital signs on day of discharge: Temperature 97.7 degrees Fahrenheit, pulse rate 91, respiratory rate 17, O2 sat 95% on room air, blood pressure 125/50. Examination of the right lower extremity demonstrates dressing overlying the right hip, which is clean, dry, and intact. Her thigh is mildly swollen, but compressible. Distally, she has +2 palpable DP pulse, 5/5 ankle dorsiflexion, plantarflexion strength. Sensation to light touch is intact and her calf is soft and nontender. DIAGNOSTIC STUDIES/LAB DATA: On day of discharge, hemoglobin 10.9, hematocrit 32. INR 1.59. Radiographs: Postoperative radiographs of the right hip demonstrate right total hip arthroplasty with satisfactory prosthesis placement and no acute abnormality. DISCHARGE MEDICATIONS: 1. Vitamin D3. 2. Wellbutrin. 3. Vitamin B12. 4. Simvastatin 20 mg daily. 5. Magnesium 500 mg twice daily. 6. Percocet 5/325 one to two 2 tabs p.o. q.4 to 6 hours p.r.n. pain. 7. Coumadin 2 mg take as directed. 8. Colace 100 mg p.o. t.i.d. p.r.n. constipation. CONDITION ON DISCHARGE: Stable. DISCHARGE INSTRUCTIONS: Ms. Childress is a 67-year-old female on postoperative day # 2, status post right total hip arthroplasty, which was uncomplicated. She is orthopedically and medically stable to be discharged home with services. She has stable vital signs and lab. She has restarted home medications. She will take 6 mg of Coumadin on Wednesday and 4 mg of Coumadin on Wednesday night. INR will be rechecked on Wednesday. She will have INR draws on Mondays and with visiting nurse services and Coumadin dosage will be adjusted appropriately. She will remain weightbearing as tolerated on the right lower extremity and has home physical therapy twice a day. She will take Percocet for pain control and Colace up to 3 times a day for constipation. She will follow up in the office with Dr. Godinez in approximately 14 days after surgery for incision check and suture removal. She was instructed to call Dr. Godinez or go immediately to the ER should she develop any new fever, chills, incision pain , redness, or drainage. She was instructed to go immediately to the ER should she develop chest pain or shortness of breath. AZEEM SCHAFER [id number]/[facility] #: [id number] MTDD
== END 2017-11-27 11:45 | disposition home health service (06) | DRG 470 ==
LOC: AA 11:21 → SSU 15:34
PROVIDERS: ADMIT Orthopaedic Surgery Adult Reconstructive Orthopaedic Surgery; ATTEND Orthopaedic Surgery Adult Reconstructive Orthopaedic Surgery
PROC: 0SR904A Replacement of Right Hip Joint with Ceramic on Polyethylene Synthetic Substitute, Uncemented, Open Approach (ICD-10-PCS; principal; 2017-11-25 14:00)
DX: M16.11 Unilateral primary osteoarthritis, right hip (principal); Z68.41 Body mass index [BMI] 40.0-44.9, adult; E78.00 Pure hypercholesterolemia, unspecified; F17.210 Nicotine dependence, cigarettes, uncomplicated; E66.01 Morbid (severe) obesity due to excess calories; J44.9 Chronic obstructive pulmonary disease, unspecified; I10 Essential (primary) hypertension; K04.7 Periapical abscess without sinus; M24.851 Other specific joint derangements of right hip, not elsewhere classified; G47.33 Obstructive sleep apnea (adult) (pediatric); F41.9 Anxiety disorder, unspecified; M25.751 Osteophyte, right hip; Z98.51 Tubal ligation status; Z90.49 Acquired absence of other specified parts of digestive tract; Z88.2 Allergy status to sulfonamides; Z88.5 Allergy status to narcotic agent; Z88.8 Allergy status to other drugs, medicaments and biological substances; Z72.89 Other problems related to lifestyle; Z88.7 Allergy status to serum and vaccine; Z82.49 Family history of ischemic heart disease and other diseases of the circulatory system; Z79.01 Long term (current) use of anticoagulants; Z83.3 Family history of diabetes mellitus; Z82.3 Family history of stroke; Z80.42 Family history of malignant neoplasm of prostate; Z98.42 Cataract extraction status, left eye; Q65.89 Other specified congenital deformities of hip
CPT/HCPCS: 36415; 71046; 72170; 80048; 85014; 85018; 85049; 85610; 93005; A9270-GY; C1713; C1776; G8978-GP-CJ; G8978-GP-CL; G8979-GP-CI; G8980-GP-CJ; G8987-GO-CL; G8988-GO-CI; J0330; J0690; J1100; J1170; J1650; J1885; J2250; J2405; J2704; J3010